=== PATIENT | female | born 1995 | race Two or more races ===

== ENCOUNTER 2024-07-16 21:14 | Emergency (ER) | payer OTHER ==
[~2024-07-16] VITALS: Ht 162.6 cm; Wt 65.8 kg
[2024-07-16] MEDS ORDERED: ZOCOR20 MG PO (21:51)
[2024-07-16] MEDS ORDERED: TRAZODONE HCL150 MG (21:51)
[2024-07-16] MEDS ORDERED: COZAAR50 MG PO (21:51)
[2024-07-16] MEDS ORDERED: ACETAMINOPHEN 500 MG GEL..CAP PO ONE ×2 (22:45→23:14)
[2024-07-16] MEDS ORDERED: GUAIFENESIN/DEXTROMETHORPHAN 100MG/10ML BLIST.PACK PO ONE (22:45)
[2024-07-16] MEDS ORDERED: CETIRIZINE HCL 5 MG/5 ML ML PO ONE (22:45)
[2024-07-16] MEDS ORDERED: GENTAMICIN SULFATE 0.15 MG/DR DROPS 5ML OP ONE ×2 (23:10→23:15)
[2024-07-16] MEDS ORDERED: GUAIFEN/DEXTROMETHORPHAN/PE 10 ML BLIST.PACK PO ONE (23:14)
[2024-07-16] MEDS ORDERED: CETIRIZINE HCL 5MG/5ML BLIST.PACK PO ONE (23:14)
[2024-07-16 23:42] LABS: HEMATOCRIT 37.4 % (36.0-45.00); HEMOGLOBIN 12.5 g/dL (12.0-15.00); MEAN CELL VOLUME 88.7 fL (80.00-100.00); MEAN CORPUSCULAR HEMOGLOBIN 29.7 pg (27.00-32.0); MEAN CORPUSCULAR HGB CONC 33.4 g/dl (32.0-36.0); PLATELET COUNT 183 K/uL (150-450); RED BLOOD COUNT 4.22 M/uL (4.00-6.00); RED CELL DISTRIBUTION WIDTH 13.6 % (11.5-14.5)
[2024-07-16] MEDS ORDERED: GILTUSS COUGH-118 M1 PO (23:51)
[2024-07-16] MEDS ORDERED: ZITHROMAX TRI-500 MG PO (23:51)
[2024-07-16] MEDS ORDERED: ACETAMINOPHEN500 M1 PO (23:51)
== END 2024-07-17 01:00 | disposition home or self-care (01) ==
LOC: ER 21:15
PROVIDERS: Preventive Medicine Public Health & General Preventive Medicine
DX: R53.81 Other malaise (principal); J06.9 Acute upper respiratory infection, unspecified; Z20.822 Contact with and (suspected) exposure to COVID-19; I10 Essential (primary) hypertension; E16.1 Other hypoglycemia; Z91.013 Allergy to seafood; Z91.041 Radiographic dye allergy status

== ENCOUNTER 2024-09-13 21:18 | Emergency (ER) | payer OTHER ==
[~2024-09-13] VITALS: Ht 162.6 cm; Wt 68.0 kg
[~2024-09-13 21:18] MED LIST: ACETAMINOPHEN500 M1 PO; COZAAR50 MG PO; GILTUSS COUGH-118 M1 PO; TRAZODONE HCL150 MG; ZITHROMAX TRI-500 MG PO; ZOCOR20 MG PO
[2024-09-13] MEDS ORDERED: ZOLOFT20 MG/1 ML (21:38)
[2024-09-13] MEDS ORDERED: BUSPIRONE HCL30 MG (21:39)
[2024-09-13] MEDS ORDERED: COZAAR25 MG (21:53)
[2024-09-13] MEDS ORDERED: KETOROLAC TROMETHAMINE 30 MG VIAL IM STA (22:56)
[2024-09-13] MEDS ORDERED: KETOROLAC TROMETHAMINE 30 MG VIAL ONE (23:14)
[2024-09-13 23:59] LABS: BASO % 0.3 % (0.1-1.2); EOS # 0.05 (0.04-0.54); EOS % 0.6 % (0.7-7.0); HEMATOCRIT 37.6 % (34.1-44.9); HEMOGLOBIN 12.6 g/dL (11.2-15.7); LYMPH # 1.56 (1.18-3.74); LYMPH % 17.7 % (19.3-53.1); MONO # 0.47 (0.24-0.82); MONO % 5.3 % (4.7-12.5); NEUT # 6.67 (1.56-6.13); NEUT % 75.9 % (34.0-71.1); PLATELET COUNT 223 K/uL (163-369); RED BLOOD COUNT 4.35 M/uL (3.93-5.22); RED CELL DISTRIBUTION WIDTH 13.4 % (11.6-14.4)
[2024-09-14 00:23] LABS: ALBUMIN 3.6 gm/dL (3.4-5.0); BILIRUBIN TOTAL 0.37 mg/dL (0.3-1.2); CALCIUM 9.3 mg/dL (8.5-10.1); CREATININE SERUM 0.65 mg/dL (0.55-1.02); GFR 107.02; GLOBULINA 3.6 G/DL (2.4-3.5); POTASSIUM 4.18 mEq/L (3.5-5.1); TOTAL PROTEIN 7.2 gm/dL (6.4-8.2)
[2024-09-14] MEDS ORDERED: COZAAR50 MG PO (03:17)
[2024-09-14] MEDS ORDERED: HYDROXYZINE HCL50 MG PO (03:26)
== END 2024-09-14 03:40 ==
LOC: ER 21:40
PROVIDERS: General Practice
DX: R07.89 Other chest pain (principal); I10 Essential (primary) hypertension; Z91.013 Allergy to seafood; Z91.041 Radiographic dye allergy status